=== PATIENT | female | born 1970 | race Caucasian/White ===

== ENCOUNTER 2016-07-28 16:59 | Emergency (ER) | payer MEDICAID, OTHER ==
--- NOTE | 2016-07-28 17:42 | EDPHY ---
H & P Time Seen by Provider: 07/28/16 17:42 HPI/ROS: Chief complaint. Leg swelling HPI. 45-year-old female returned from a driving trip and then plane flight from [place] last evening. This morning she has pain and swelling behind her right knee with right ankle swelling. No trauma or unusual activity. No history of DVT. No chest discomfort or trouble breathing. She has also had a rash for the last several days and shows me a picture of an erythematous rash on the posterior left calf which now is much improved. It has flattened slightly reddish brown. Does not itch or hurt. This is on the leg that is not painful or swollen. She also has some erythema that itches with under her chin and anterior neck. No difficulty swallowing or trouble breathing. No known exposures though she thinks possible for insect bites to of occurred ROS Constitutional. no fever/chills, no weakness Eyes. no problems with vision ENT. no sore throat, no nasal drainage Cardiovascular. no chest pain Respiratory. no shortness of breath, no cough Abdominal. no abdominal pain, no nausea/vomiting, no diarrhea . no problems urinating MS. Swelling to right calf and ankle and pain behind right knee Skin. Rash to chin and anterior neck and left calf. Lymph. no swollen glands Neuro. no headache, no dizziness, no difficulty walking or with speech Past Medical/Surgical History: pre-clampsia Social History: , non smoker, no alcohol Physical Exam: General Appearance: Alert well-developed female mild distress vital signs stable Eyes: Pupils equal and round no pallor or injection. ENT, Mouth: Mucous membranes are moist. Respiratory: There are no retractions, lungs are clear to auscultation. Cardiovascular: Regular rate and rhythm. Gastrointestinal: Abdomen is soft and nontender, no masses, bowel sounds normal. Neurological: Awake and alert, sensory and motor exams grossly normal. Skin: Warm and dry, no rashes. Musculoskeletal: Tender to posterior right knee. Mild swelling to calf and ankle. Extremities symmetrical, full range of motion. Psychiatric: Patient is oriented X 3, there is no agitation. Constitutional: Initial Vital Signs Temperature (C) 37.2 C 07/28/16 17:20 Heart Rate 70 07/28/16 17:20 Respiratory Rate 16 07/28/16 17:20 Blood Pressure 169/88 H 07/28/16 17:20 O2 Sat (%) 95 07/28/16 17:20 O2 Delivery Mode Room Air Allergies/Adverse Reactions: No Known Allergies Allergy (Unverified 07/19/15 13:22) Home Medications: Medication Instructions Recorded NK [No Known Home Meds] 07/28/16 Medical Decision Making - Diagnostics Imaging Results: Imaging Impressions Extremity Venous Study 07/28/16 17:39 Impression: No evidence of deep vein thrombosis in the right lower extremity. Ultrasound reviewed by me and discussed with Dr. Schaffer reveals no evidence for DVT ED Course/Re-evaluation: Re-evaluation at 7:00 p.m.. Patient is stable. The patient and I discussed imaging study results, treatment plan including criteria for return importance of follow-up and further evaluation. She expresses understanding and agreement Differential Diagnosis: I considered DVT, cellulitis, allergic reaction, congestive heart failure. I suspect swelling is due to dependent edema from being on a plane. No evidence for congestive heart failure or DVT Departure - Departure Disposition: Home, Routine, Self-Care Clinical Impression: Rash, Pedal edema Condition: Good Instructions: Leg Edema (ED) Additional Instructions: Keep legs elevated as much as possible next 24-48 hours. Activity as tolerated. Benadryl or antihistamines for rash. Return for fever, worsening leg pain or swelling. Recheck in 2-3 days if not improved Referrals: Whitney Cantu MD [Primary Care Provider] - 2-3 days, if not improved
[2016-07-28 17:48] VITALS: RESP 16; O2SAT 95
[2016-07-28 19:18] VITALS: BP 145/70; PULSE 68; TEMP 97.7
== END 2016-07-28 19:15 | disposition home or self-care (01) ==
LOC: CED 16:59
DX: R60.0 Localized edema (principal); R21 Rash and other nonspecific skin eruption
CPT/HCPCS: 93971-PO